=== PATIENT | female | born 1995 | race Caucasian/White ===

== ENCOUNTER 2021-01-14 16:07 | Outpatient (CLI) | payer OTHER, SELFPAY ==
--- NOTE | ~2021-01-14 | US_ITS ---
EXAMINATION: US OB /maternal detail DATE: 01/14/2021 16:55 INDICATION: survey TECHNIQUE: Multiple obstetric sonographic images performed. FINDINGS: No prior studies for comparison. There is a single living fetus in vertex presentation. The placenta is anterior without placenta pre via. Amniotic fluid volume is subjectively normal. cardiac activity and movement is noted with a heart rate of 163 beats per minute. The following anatomy was identified as normal: 4 chamber heart 3 vessel cord cord insertion kidneys urinary bladder stomach spine diaphragm ventricles cisterna magna cerebellum The following biometric data were obtained: BPD: 51mm corresponds to gestational age 21 weeks 4 days. Head circumference: 187 mm corresponds to gestational age 21 weeks 0 days. Abdominal circumference: 165 mm corresponds to gestational age 21 weeks 4 days. Femur length: 34 mm corresponds to gestational age 20 weeks 3 days. Head circumference to abdominal circumference ratio: 1.13 (normal range for expected gestational age is 1.06-1.25). Estimated weight: 398 grams +/- 60 grams using Hadlock method. IMPRESSION: 1: Single living intrauterine with an estimated gestational age of 21weeks 1days by current ultrasound measurements, with an EDC of 05/26/2021 in vertex presentation. 2. Normal survey. Reviewed, dictated and finalized at location A. OR STACK ENGINEER IMPRESSION: 1: Single living intrauterine with an estimated gestational age of 21 weeks 1days by current ultrasound measurements, with an EDC of 05/26/2021 in luba nirav presentation. 2. Normal survey.
== END 2021-01-14 16:08 | disposition home or self-care (01) ==
PROVIDERS: Visit Provider Obstetrics & Gynecology
DX: Z36.9 Encounter for antenatal screening, unspecified (principal); Z3A.21 21 weeks gestation of pregnancy
CPT/HCPCS: 76805

== ENCOUNTER 2021-06-09 14:57 | Outpatient (CLI) | payer OTHER, SELFPAY ==
[2021-06-09 15:45] LABS: Basophils Absolute Auto 0.1 K/mm3 (0.0-0.1); Basophils Percent Auto 0.4 % (0.2-1.2); Eosinophils Absolute Auto 0.3 K/mm3 (0-0.3); Eosinophils Percent Auto 1.8 % (0-4.4); Hematocrit 34.9 % (37.0-47.0); Hemoglobin 11.2 g/dL (12.0-15.0); Immature Granulocyte Absolute 0.09 K/mm3 (0.00-0.031); Immature Granulocyte Percent A 0.6 % (0-0.5); Lymphocytes Percent Auto 19.7 % (18.3-44.2); Mean Corpuscular HGB Conc 32.1 g/dl (32-36); Mean Corpuscular Hemoglobin 29.6 pg (26-34); Mean Corpuscular Volume 92.3 fl (80-100); Mean Platelet Volume 8.9 fl (7.4-10.4); Monocytes Absolute Auto 1.5 K/mm3 (0.1-0.6); Monocytes Percent Auto 9.3 % (2.6-8.5); Neutrophils Absolute Auto 11.1 K/mm3 (1.3-6.7); Neutrophils Percent Auto 68.2 % (45.5-73.1); Platelet Count Result 499 k/mm3 (150-375); Red Blood Count 3.78 M/mm3 (4.2-5.4); White Blood Count 16.3 K/mm3 (4.5-10.0)
== END 2021-06-09 14:58 | disposition home or self-care (01) ==
LOC: ANHLAB 15:08
PROVIDERS: Visit Provider Obstetrics & Gynecology
DX: O41.1290 Chorioamnionitis, unspecified trimester, not applicable or unspecified (principal); Z3A.00 Weeks of gestation of pregnancy not specified
CPT/HCPCS: 36415; 85025

== ENCOUNTER → 2022-09-30 10:59 | Outpatient (CLI) | payer OTHER, SELFPAY ==
--- NOTE | ~2022-09-30 | US_ITS ---
EXAMINATION: US OB /maternal detail DATE: 09/30/2022 11:36 INDICATION: anatomic survey. TECHNIQUE: Real-time ultrasound of the pelvis was performed. COMPARISON: None. FINDINGS: There is a single living fetus in variable presentation. The placenta is posterior and fundal, 6 cm from the cervix. The cervical length is 3.4 cm on transabdominal images, which is normal. heart rate is 155 beats per minute (bpm). The amniotic fluid volume is subjectively normal. The following biometric data were obtained: Biparietal diameter (BPD): 4.9 cm; head circumference (HC): 17.5 cm; abdominal circumference (AC): 15 .8 cm; femur length (FL): 3.0 cm. These measurements are concordant. Estimated weight is 333 g +/- 50 g, which correlates with the 52nd percentile when 02/17/23 is u sed as estimated date of delivery. As single measurements, these parameters are each equal to the following estimated gestational ages: BPD: 20 weeks 6 days. HC: 20 weeks 0 days. AC: 20 weeks 6 days. FL: 19 weeks 1 days. estimated gestational age based solely on measurements from this exam is 20 weeks 2 days +/- 1 weeks 3 days. The cerebral ventricles, cerebellum, cisterna magna, nuchal fold, and visualized portions of the spin e are normal. The heart is normal. The diaphragm, stomach, kidneys, and bladder are normal. There are two umbilical arteries to yield a 3-vessel cord. The cord insertion is normal. IMPRESSION: 1. Single living fetus in variable presentation. 2. Estimated weight is 333 g +/- 50 g, which correlates with the 52nd percentile when 02/17/23 is used as estimated date of delivery. 3. Normal anatomic survey. Reviewed, dictated and finalized at location A. CTOR OF MARKETING COMMUNICATIONS IMPRESSION: 1. Single living fetus in variable presentation. 2. Estimated weight is 333 g +/- 50 g, which correlates with the 52nd pe rcentile when 02/17/23 is used as estimated date of delivery. 3. Normal anatomic survey.
== END ==
PROVIDERS: PCP Obstetrics & Gynecology Gynecologic Oncology; Visit Provider Obstetrics & Gynecology Gynecologic Oncology
DX: Z36.9 Encounter for antenatal screening, unspecified (principal)
CPT/HCPCS: 76805

== ENCOUNTER → 2022-11-27 16:00 | Outpatient (CLI) | payer OTHER, SELFPAY ==
--- NOTE | ~2022-11-27 | US_ITS ---
EXAMINATION: US OB follow up DATE: 11/27/2022 16:26 INDICATION: Other viral diseases complicating . TECHNIQUE: Real-time ultrasound of the pelvis was performed. COMPARISON: Ultrasound 09/30/2022 FINDINGS: There is a single living fetus in breech presentation. The placenta is posterior. heart rate i s 152 beats per minute (bpm). The cervical length is normal on transabdominal images. The amniotic fl uid index is 15.7 cm, which is normal. The following biometric data were obtained: Biparietal diameter (BPD): 7.4 cm; head circumference (HC): 26.7 cm; abdominal circumference (AC): 23 .5 cm; femur length (FL): 5.0 cm. These measurements are discordant with FL/BPD < 5th percentile. Estimated weight is 1120 g +/- 168 g, which correlates with the 20th percentile when 02/17/23 is used as estimated date of delivery. As single measurements, these parameters are each equal to the following estimated gestational ages: BPD: 29 weeks 5 days. HC: 29 weeks 1 days. AC: 27 weeks 6 days. FL: 26 weeks 6 days. estimated gestational age based solely on measurements from this exam is 28 weeks 3 days +/- 2 weeks 0 days. IMPRESSION: 1. Single living fetus in breech presentation. 2. Estimated weight is 1120 g +/- 168 g, which correlates with the 20th percentile when 3 is used as estimated date of delivery. 3. Discordant biometrics with low FL/BPD ratio. Reviewed, dictated and finalized at location A. RNAL MEDICINE DOCTOR IMPRESSION: 1. Single living fetus in breech presentation. 2. Estimated weight is 1120 g +/- 168 g, which correlates with the 20th percentile when 02/17/23 is used as estimated date of delivery. 3. Discordant biometrics with low FL/BPD ratio.
== END ==
PROVIDERS: PCP Obstetrics & Gynecology; Visit Provider Obstetrics & Gynecology
DX: O98.513 Other viral diseases complicating pregnancy, third trimester (principal); U07.1 COVID-19; Z3A.00 Weeks of gestation of pregnancy not specified
CPT/HCPCS: 76816

== ENCOUNTER → 2022-12-24 16:04 | Outpatient (CLI) | payer OTHER, SELFPAY ==
--- NOTE | ~2022-12-24 | US_ITS ---
EXAMINATION: US OB follow up DATE: 12/24/2022 16:42 INDICATION: Viral disease complicating . TECHNIQUE: Real-time transabdominal obstetric ultrasound. FINDINGS: Comparison to multiple prior studies sequentially, with oldest reviewed study dated 2021. There is a single living fetus in vertex presentation. The placenta is posterior without placenta pr evia. JULITA is normal measuring 14.2 cm. cardiac activity and movement is noted with a heart rate of 150 to beats per minute . The amniotic fluid volume is normal. The following biometric data were obtained: BPD: 85mm corresponds to gestational age 34 weeks 2 days. Head circumference: 309mm corresponds to gestational age 34 weeks 3 days. Abdominal circumference: 279mm corresponds to gestational age 32 weeks 0 days. Femur length: 60mm corresponds to gestational age 31 weeks 1 days. Estimated weight: 1912grams +/- 287grams, 39%.] IMPRESSION: 1. Single living intrauterine in vertex presentation with an estimated gestational age of 3 2 weeks 3 days by inititial ultrasound. Appropriate interval growth. 2. Normal placenta. Reviewed, dictated and finalized at location A. ORATE AFFAIRS MANAGER IMPRESSION: 1. Single living intrauterine in vertex presentation with an estimate d gestational age of 32 weeks 3 days by inititial ultrasound. Appropriate inte rval growth. 2. Normal placenta.
== END ==
PROVIDERS: PCP Obstetrics & Gynecology; Visit Provider Obstetrics & Gynecology
DX: O98.519 Other viral diseases complicating pregnancy, unspecified trimester (principal); U07.1 COVID-19; Z3A.32 32 weeks gestation of pregnancy
CPT/HCPCS: 76816

== ENCOUNTER → 2023-01-22 15:55 | Outpatient (CLI) | payer OTHER, SELFPAY ==
--- NOTE | ~2023-01-22 | US_ITS ---
EXAMINATION: US OB follow up DATE: 01/22/2023 16:29 INDICATION: Small for gestational age TECHNIQUE: Real-time transabdominal obstetric ultrasound. FINDINGS: Comparison to multiple prior studies sequentially, with oldest reviewed study dated 2021. There is a single living fetus in vertex presentation. The placenta is posterior without placenta pr evia. cardiac activity and movement is noted with a heart rate of 162 beats per minute. T he amniotic fluid volume is normal. JULITA measures 19.2 cm The following biometric data were obtained: BPD: 94mm corresponds to gestational age 38 weeks 0 days. Head circumference: 330mm corresponds to gestational age 37 weeks 4 days. Abdominal circumference: 323mm corresponds to gestational age 36 weeks 3 days. Femur length: 66mm corresponds to gestational age 33 weeks 6 days. Estimated weight: 2812grams +/- 422grams, 43%.] IMPRESSION: 1. Single living fetus in vertex presentation with an estimated gestational age of 36 weeks 4 days b y inititial ultrasound. Appropriate interval growth. 2. Normal placenta. Reviewed, dictated and finalized at location A. IMPRESSION: 1. Single living fetus in vertex presentation with an estimated gestational ag e of 36 weeks 4 days by inititial ultrasound. Appropriate interval growt h. 2. Normal placenta.
== END ==
PROVIDERS: PCP Obstetrics & Gynecology Gynecologic Oncology; Visit Provider Obstetrics & Gynecology Gynecologic Oncology
DX: O26.843 Uterine size-date discrepancy, third trimester (principal); Z3A.36 36 weeks gestation of pregnancy
CPT/HCPCS: 76816

== ENCOUNTER → 2023-02-25 11:59 | Outpatient (CLI) | payer OTHER, SELFPAY ==
--- NOTE | ~2023-02-25 | US_ITS ---
EXAMINATION: US breast LT limited HISTORY: Painful left breast mass with some improvement on antibiotics, three weeks TECHNIQUE: Targeted left breast ultrasound is performed in the area of clinical concern. FINDINGS: There is a 2.3 x 1.8 cm complex cystic and solid mass with lobulated margins, posterior aco ustic enhancement, and peripheral vascularity at the 2:00 location, 5 cm from the nipple. A smaller a djacent mass with similar sonographic features measures 1.6 x 1.0 cm. There is a 9 mm x 5 mm oval, ci rcumscribed, parallel, hypoechoic mass with no posterior features or internal vascularity at the 4:00 location 3 cm from the nipple. IMPRESSION: Probable small breast abscesses/phlegmons corresponding to the area of clinical concern. Recommend co ntinued antibiotic therapy and clinical examination with follow-up ultrasound in four weeks. If sympt oms worsen in the interval, or have not resolved on repeat imaging, ultrasound-guided biopsy/drainage would be recommended. BI-RADS category 4, suspicious findings. Reviewed, dictated and finalized at location A. IMPRESSION: Probable small breast abscesses/phlegmons corresponding to the area of clinical concern. Recommend continued antibiotic therapy and clinical examination with follow-up ultrasound in four weeks. If symptoms worsen in the interval, or have not resolved on repeat imaging, ultrasound-guided biopsy/drainage would be rec ommended. BI-RADS category 4, suspicious findings.
== END ==
PROVIDERS: PCP Advanced Practice Midwife; Visit Provider Advanced Practice Midwife
DX: N64.4 Mastodynia (principal)
CPT/HCPCS: 76642